=== PATIENT | male | born 1985 | race African-American/Black ===

== ENCOUNTER 2018-05-29 08:58 | Emergency (ER) | payer SELFPAY ==
[~2018-05-29] VITALS: Ht 177.8 cm; Wt 93.4 kg
[2018-05-29 09:02] VITALS: BP 113/95
== END 2018-05-29 10:41 | disposition home or self-care (01) ==
LOC: ER 09:01
DX: S93.492A Sprain of other ligament of left ankle, initial encounter (principal); Z60.2 Problems related to living alone; W22.8XXA Striking against or struck by other objects, initial encounter; Y93.67 Activity, basketball; Y92.310 Basketball court as the place of occurrence of the external cause; Y99.8 Other external cause status
CPT/HCPCS: 73610-TC